=== PATIENT | female | born 1960 | race Caucasian/White ===

== ENCOUNTER 2020-06-07 09:35 | Outpatient (REF) | payer OTHER, SELFPAY ==
[2020-06-07 09:54] LABS: COVID-19 Test Negative (Negative)
== END 2020-06-07 09:36 | disposition home or self-care (01) ==
LOC: HO.EMPCOV 09:35
PROVIDERS: PCP Internal Medicine; Visit Provider Internal Medicine
DX: Z20.822 Contact with and (suspected) exposure to COVID-19 (principal)
CPT/HCPCS: 36415; 87635; C9803

== ENCOUNTER 2020-06-16 11:09 | Outpatient (REF) | payer OTHER, SELFPAY ==
[2020-06-16 11:27] LABS: COVID-19 Test Negative (Negative)
== END 2020-06-16 11:10 | disposition home or self-care (01) ==
LOC: HO.EMPCOV 11:09
PROVIDERS: Visit Provider Internal Medicine
DX: Z20.822 Contact with and (suspected) exposure to COVID-19 (principal)
CPT/HCPCS: 36415; 87635; C9803

== ENCOUNTER 2020-06-21 08:44 | Outpatient (REF) | payer OTHER, SELFPAY ==
[2020-06-21 09:07] LABS: COVID-19 Test Negative (Negative)
== END 2020-06-21 08:45 | disposition home or self-care (01) ==
LOC: HO.EMPCOV 08:44
PROVIDERS: Visit Provider Internal Medicine
DX: Z20.822 Contact with and (suspected) exposure to COVID-19 (principal)
CPT/HCPCS: 36415; 87635; C9803

== ENCOUNTER 2020-07-20 12:35 | Emergency (ER) | payer OTHER, SELFPAY ==
--- NOTE | ~2020-07-20 | CT_ITS ---
EXAMINATION: CT HEAD WITHOUT CONTRAST CLINICAL INFORMATION: Fall, trauma, pain COMPARISON: None TECHNIQUE: Contiguous axial imaging was performed from the skull base to vertex without intravenous administration of contrast. Additional 2-D coronal and sagittal reformatted images are generated on the CT workstation and uploaded to PACS. This CT examination was performed using dose optimization techniques as appropriate, variously including the following: *Automated exposure control *Adjustment of mA and/or kV according to patient size (this includes techniques or standardized protocols for targeted exams where dose is matched to indication/reason for exam; i.e. extremities or head) *Use of iterative reconstruction technique DLP: 620 mGy-cm FINDINGS: There is no intracranial hemorrhage, hematoma, or extra-axial fluid collection. The ventricles are normal in size. There is no hydrocephalus, edema, or mass effect. The santos-white matter differentiation appears symmetric. There is no visible acute territorial infarct or mass lesion. The calvarium appears intact. There is no pneumocephalus or orbital emphysema. The visualized sinuses and middle ears and mastoid air cells show no significant mucosal thickening. There are no air-fluid levels. CT/CT head/brain wo con IMPRESSION: No acute intracranial abnormality.
--- NOTE | ~2020-07-20 | CT_ITS ---
EXAMINATION: CT CERVICAL SPINE WITHOUT CONTRAST CLINICAL INFORMATION: Fall, trauma, pain COMPARISON: CT head 07/20/2020, CT chest sinuses 06/08/2014 TECHNIQUE: Multidetector volumetric CT imaging of the cervical spine is performed without contrast in the axial plane. Additional 2D reformatted coronal and sagittal images are generated on the CT workstation and uploaded to PACS. This CT examination was performed using dose optimization techniques as appropriate, variously including the following: *Automated exposure control *Adjustment of mA and/or kV according to patient size (this includes techniques or standardized protocols for targeted exams where dose is matched to indication/reason for exam; i.e. extremities or head) *Use of iterative reconstruction technique DLP: 321 mGy-cm FINDINGS: There is no vertebral compression fracture, fracture line, spondylolisthesis, or prevertebral soft tissue swelling. The craniocervical junction appears normal. The odontoid appears intact. There is straightening cervical lordosis with borderline levocurvature which may be related to muscle spasm. There are mild degenerative disc changes C5-C6 with disc narrowing and mild endplate sclerosis and vertebral spurring. Degenerative facet changes are present on the left at C4-C5. No perched facet. There is no apical pneumothorax. CT/CT cervical spine wo con IMPRESSION: 1. No acute bony abnormality or prevertebral soft tissue swelling. 2. Borderline levocurvature with straightening cervical lordosis likely related to muscle spasm. 3. Degenerative disc changes C5-C6. Degenerative facet changes left C4-C5.
[2020-07-20 12:47] VITALS: BP 113/59; PULSE 102; RESP 18; TEMP 36.4; O2SAT 98; BMI 25.4
--- NOTE | 2020-07-20 13:31 | ED.FALL ---
HPI - Fall General Chief Complaint: Fall <CLOVIS Royal Last Filed: 07/20/20 18:19> Stated Complaint: FALL HEAD INJ SUNDAY <CLOVIS Royal Last Filed: 07/20/20 18:19> Time Seen by Provider: 07/20/20 13:31 <CLOVIS Royal - Last Filed: 07/20/20 18:19> History of Present Illness HPI Narrative: Patient complains of headache and neck pain after fall 48 hours ago at home was she fell off a chair hitting her head and twisting and hitting her neck on the back of the chair, she had no loss of consciousness but she does have continuing worsening headache she has no numbness no weakness no tingling, no confusion no vision changes no dizziness no nausea or vomiting <CLOVIS Royal Last Filed: 07/20/20 18:19> Related Data Home Medications: Previous Rx's Medication Instructions Recorded ibuprofen 600 mg PO Q6H PRN #20 tab 07/20/20 <CLOVIS Royal Last Filed: 07/20/20 18:19> Allergies/Adverse Reactions: Allergies Allergy/AdvReac Type Severity Reaction Status Date / Time Sulfa (Sulfonamide Allergy Intermediate DIZZINESS Unverified 02/19/20 16:13 Antibiotics) [SULFA (SULFONAMIDE ANTIBIOTICS)] Latex, Natural Rubber AdvReac Itching Verified 07/20/20 12:47 <CLOVIS Royal Last Filed: 07/20/20 18:19> Review of Systems Review of Systems: Review of systems is positive for headache and neck pain There is no loss of consciousness no nausea no vomiting no dizziness no weakness no confusion no fever no chills no numbness no weakness no paresthesias, no changes to bowel or bladder no chest pain no cough no shortness of breath <CLOVIS Royal Last Filed: 07/20/20 18:19> Yes all other systems are reviewed and are negative <CLOVIS Royal Last Filed: 07/20/20 18:19> [facility] Past Medical History Attestation statement: The following information was validated with the patient. <CLOVIS Royal Last Filed: 07/20/20 18:19> Source: nursing notes reviewed <CLOVIS Royal Last Filed: 07/20/20 18:19> Medical History: Medical History (Updated 07/21/20 @ 00:00 by Background Daalejandro) IBS (irritable bowel syndrome) Thyroid activity decreased <CLOVIS Royal - Last Filed: 07/20/20 18:19> Physical Exam Vital Signs: Vital Signs: Last Vital Signs Temp 97.6 F 07/20/20 12:47 Pulse 102 H 07/20/20 12:47 Resp 18 07/20/20 12:47 BP 113/59 L 07/20/20 12:47 Pulse Ox 98 07/20/20 12:47 Body Mass Index 25.4 <CLOVIS Royal - Last Filed: 07/20/20 18:19> Vital Signs: Last Vital Signs Temp 97.6 F 07/20/20 12:47 Pulse 102 H 07/20/20 12:47 Resp 18 07/20/20 12:47 BP 113/59 L 07/20/20 12:47 Pulse Ox 98 07/20/20 12:47 Body Mass Index 25.4 <Charly Shi MD - Last Filed: 07/26/20 07:43> General appearance no acute distress, relaxed and cooperative A&O x3 The head is normocephalic atraumatic, there are no palpable deformities with scalp there is no raccoon eyes there is no Vazquez sign, pupils equal round reactive light extraocular motions are intact The neck had diffuse posterior tenderness including the midline The respiratory no acute distress no tenderness to the chest wall The extremities is full range of motion x4 without tenderness swelling or deformity Skin is intact no rashes no bruising no lacerations The neuro is A&O x3, gait and balance are normal, verbal interaction and a distending are normal, motor is 5/5 x4, and sensation is intact, no facial asymmetry <CLOVIS Royal - Last Filed: 07/20/20 18:19> Course Course Course Narrative: Patient remains comfortable stable with no progression of symptoms throughout visit and CT of head and neck were negative and patient was discharged with diagnosis of neck strain and concussion and ambulated easily from the department <CLOVIS Royal - Last Filed: 07/20/20 18:19> I have reviewed the chart <Charly Shi MD - Last Filed: 07/26/20 07:43> MDM - Fall Imaging Data CT scan - head: Radiologist's impression: There is no intracranial hemorrhage, hematoma, or extra-axial fluid collection. The ventricles are normal in size. There is no hydrocephalus, edema, or mass effect. The santos-white matter differentiation appears symmetric. There is no visible acute territorial infarct or mass lesion. The calvarium appears intact. There is no pneumocephalus or orbital emphysema. The visualized sinuses and middle ears and mastoid air cells show no significant mucosal thickening. There are no air-fluid levels. CT/CT head/brain wo con IMPRESSION: No acute intracranial abnormality. <CLOVIS Royal - Last Filed: 07/20/20 18:19> cervical spin ct: Radiologist's impression: There is no vertebral compression fracture, fracture line, spondylolisthesis, or prevertebral soft tissue swelling. The craniocervical junction appears normal. The odontoid appears intact. There is straightening cervical lordosis with borderline levocurvature which may be related to muscle spasm. There are mild degenerative disc changes C5-C6 with disc narrowing and mild endplate sclerosis and vertebral spurring. Degenerative facet changes are present on the left at C4-C5. No perched facet. There is no apical pneumothorax. CT/CT cervical spine wo con IMPRESSION: 1. No acute bony abnormality or prevertebral soft tissue swelling. 2. Borderline levocurvature with straightening cervical lordosis likely related to muscle spasm. 3. Degenerative disc changes C5-C6. Degenerative facet changes left C4-C5. <CLOVIS Royal - Last Filed: 07/20/20 18:19> Discharge Plan Discharge Clinical Impression: Concussion without loss of consciousness <CLOVIS Royal - Last Filed: 07/20/20 18:19> Patient Disposition: Home, Self-Care <CLOVIS Royal Last Filed: 07/20/20 18:19> Additional Instructions: No bleed or skull fracture or neck fracture were seen on CT scans, no sign of any dangerous injury Follow with primary doctor Use Tylenol and or Motrin for pain Return any time any worse condition or any concerns <CLOVIS Royal - Last Filed: 07/20/20 18:19> Prescriptions: New ibuprofen 600 mg tablet 600 mg PO Q6H PRN (Reason: pain) Qty: 20 RF: 0 <CLOVIS Royal - Last Filed: 07/20/20 18:19> Stand Alone Forms: Work/School Release <CLOVIS Royal - Last Filed: 07/20/20 18:19> Interventions: ED Discharge Assessment Last Done: 07/20/20 15:20 <CLOVIS Royal - Last Filed: 07/20/20 18:19> Discharge Date/Time: 07/20/20 15:20 <CLOVIS Royal - Last Filed: 07/20/20 18:19>
== END 2020-07-20 15:20 | disposition home or self-care (01) ==
PROVIDERS: Emergency Provider Emergency Medicine; PCP Internal Medicine
DX: S06.0X0A Concussion without loss of consciousness, initial encounter (principal); S16.1XXA Strain of muscle, fascia and tendon at neck level, initial encounter; W17.89XA Other fall from one level to another, initial encounter; Y93.89 Activity, other specified; Y92.019 Unspecified place in single-family (private) house as the place of occurrence of the external cause; Y99.9 Unspecified external cause status
CPT/HCPCS: 70450; 72125; 99283; 99284

== ENCOUNTER 2020-08-25 17:00 | Outpatient (RCR) | payer OTHER, SELFPAY ==
--- NOTE | 2020-08-02 15:54 | MHC.PT.EP ---
[facility] [place] Office [place] Office [place] Office [address] [place] [address] [phone] F: [phone] F: [phone] F: [phone] F: [phone] Physical Therapy Plan of Care Date of Evaluation: 08/02/20 Date of Surgery: Diagnosis: neck pain and concussion Assessment: The patient has reduced cervical mobility greater and more painful on the right side. She also has reduced bilateral shoulder mobility into flexion and abduction again greater pain and limitation noted on the right side. The patient currently had a JUARES on the right side ever since walking on the treadmill. I did light touch on her head to assess the sinus rhythm, and there was asymmetry noted. I will address this in subsequent visits. She mentioned dizziness when we were doing gentle cervical stretches in supine and I screened her for bilateral positional vertigo but she was negative. She was diagnosed with a Concussion recently, and objectively she did present with reports of being easily fatigued, trouble with multitasking, and physical exertion. Next session I hoped to do the [place] Concussion Treadmill Test for Post Concussive Syndrome next session. The patient was noted to be a chest breather and breaths mostly through her mouth ( due to history of deviated septum, now corrected with surgery) Pt was educated on the benefits of nose breathing, and diaphragmatic breathing. Her HEP consisted of gentle right rotation cervical stretches ( supine or sitting depending on tolerance, diaphragmatic breathing, posture correction for relaxing/work, and general education regarding post concussive syndrome. Pt educated about limiting her activity based on her JUARES, and HR. Frequency and Duration: The patient will be seen 2x/week x 4 weeks. Short Term Goals: 1. Pt to be able to correctly demonstrate diaphragmatic breathing to relax her nervous system, 2. Pt to be able to demonstrate proper sitting posture optimize healing Jail Goals: 1. The patient will be able to report improved tolerance to exercise, such as Treadmill walking to show improved return to PLOF. 2. Pt will be able to have full pain free motion of bilateral shoulders into shoulder flexion to improve functional reaching. 3. Pt will have normal and symmetrical bilateral cervical rotation to allow conversational head movement and ROM for driving. Treatment Plan: Modalities to reduce pain, spasms and effusion. Manual therapy to restore motion and function. Therapeutic exercise to improve strength and flexibility. Neuromuscular re-education for posture and balance. Therapeutic activities to return to functional activities of daily living. Electronically signed by: Brittany Epstein PT DPT Please sign and return to therapist. Thank you for your referral.
== END 2020-12-04 10:00 | disposition home or self-care (01) ==
LOC: HO.PTCHIC 17:00
PROVIDERS: PCP Internal Medicine; Visit Provider Physician Assistant Medical
DX: S16.1XXD Strain of muscle, fascia and tendon at neck level, subsequent encounter (principal); F07.81 Postconcussional syndrome
CPT/HCPCS: 97110; 97112; 97140; 97163; 97530

== ENCOUNTER 2021-10-07 14:00 | Outpatient (RCR) | payer OTHER, SELFPAY | END 2021-10-21 09:55 | disposition home or self-care (01) | LOC: HO.PTCHIC 14:00 | PROVIDERS: PCP Internal Medicine; Visit Provider Nurse Practitioner Family | DX: N94.10 Unspecified dyspareunia (principal) | CPT/HCPCS: 97110; 97112; 97140; 97161 ==

== ENCOUNTER 2023-04-18 14:30 | Outpatient (RCR) | payer OTHER, SELFPAY | END 2023-05-16 16:24 | disposition home or self-care (01) | LOC: HO.OT 14:30 | PROVIDERS: PCP Internal Medicine; Visit Provider Physician Assistant | DX: Z47.89 Encounter for other orthopedic aftercare (principal) | CPT/HCPCS: 29130; 97035; 97110; 97140; 97165; 97760 ==

== ENCOUNTER 2024-11-11 09:56 | Outpatient (RCR) | payer OTHER, SELFPAY | END 2024-12-15 10:32 | disposition home or self-care (01) | LOC: HO.PTCHIC 09:56 | PROVIDERS: PCP Internal Medicine; Visit Provider Specialist/Technologist Athletic Trainer | DX: M54.16 Radiculopathy, lumbar region (principal) | CPT/HCPCS: 97110; 97161 ==